=== PATIENT | female | born 1960 | race Caucasian/White ===

== ENCOUNTER 2017-03-14 11:44 | Outpatient (CLI) | payer OTHER ==
--- NOTE | 2017-03-14 12:38 | XRAY Report ---
RIGHT RIBS WITH FRONTAL CHEST: 03/14/2017 CLINICAL INDICATION: Right chest wall contusion after fall. FINDINGS: Frontal view of the chest and oblique views of the right ribs were obtained, with a marker at the site of maximal tenderness. There are mildly displaced fractures of the right 4th and 5th ri bs laterally. No pneumothorax is evident. IMPRESSION: MILDLY DISPLACED FRACTURES OF THE RIGHT 4TH AND 5TH RIBS LATERALLY. NO PNEUMOTHORAX. JOB #: [id number] [id number] JOB #:[id number]
== END 2017-03-14 11:45 | disposition home or self-care (01) ==
LOC: DI 11:44
PROVIDERS: ATTEND Nurse Practitioner Family
DX: S22.41XA Multiple fractures of ribs, right side, initial encounter for closed fracture (principal)